=== PATIENT | male | born 1980 | race Two or more races ===

== ENCOUNTER 2022-01-08 14:11 | Inpatient (IN) | payer OTHER ==
[~2022-01-08] VITALS: Ht 175.3 cm; Wt 106.6 kg
[2022-01-08] MEDS ORDERED: HYDROCORTISON28.4 G9 RECTAL (14:40)
[2022-01-08] MEDS ORDERED: COLACE100 MG PO (14:42)
--- NOTE | 2022-01-08 14:42 | NUR ---
PTE REFIERE HACE RAJENDRA CLARK COMENZO CON DOLOR DEBORAH Y VICENTE EN RECTO. REFIERE FUE A LA OFICINA DE GASTROENTEROLOGO DR CARLEE RUBI, QUIEN LE INDICA QUE VENGA A ER PARA SER EVALUADO POR CIRUJANO RECTAL POR HEMORROIDE. REFIERE SANGRADO CADA VEZ QUE EVACUA.
--- NOTE | 2022-01-08 17:04 | NUR ---
SE EDUCA A PTE SOBR ET XMEIDCO LESIA REFIERE ENTENDER. SE LAKISHA MEUSTRAS DE LABORATORIO UTILIZANDO MEDIDAS ASEPTICAS. SE COLOCA H/L A PTE Y SE ADMINISTRAN MEDCIAMENTOS LOS CUALES TOLERA. SE NOTIFICA RX PENDIENTE A REALIZAR.
[2022-01-09] MEDS ORDERED: MIRALAX510 GM PO (08:44)
[2022-01-09] MEDS ORDERED: RECTICARE30 GM TOP (08:44)
[2022-01-09] MEDS ORDERED: DICLOFENAC SODI75 MG PO (08:45)
[2022-01-09] MEDS ORDERED: ULTRACET PO (08:45)
== END 2022-01-09 11:33 | disposition home or self-care (01) | DRG 395 ==
LOC: ER 14:11 → SURH 17:43
PROVIDERS: ADMIT Surgery; ATTEND Surgery
DX: K64.5 Perianal venous thrombosis (principal); Z20.822 Contact with and (suspected) exposure to COVID-19